=== PATIENT | female | born 1960 | race Caucasian/White ===

== ENCOUNTER 2025-02-01 15:04 | Outpatient (CLI) | payer MEDICARE | END 2025-02-01 15:05 | disposition home or self-care (01) | LOC: CSHRAD 15:04 | PROVIDERS: ATTEND Orthopaedic Surgery | DX: M54.2 Cervicalgia (principal); M54.50 Low back pain, unspecified; M53.3 Sacrococcygeal disorders, not elsewhere classified; M47.812 Spondylosis without myelopathy or radiculopathy, cervical region; M47.816 Spondylosis without myelopathy or radiculopathy, lumbar region; N20.0 Calculus of kidney; I70.90 Unspecified atherosclerosis; M46.1 Sacroiliitis, not elsewhere classified | CPT/HCPCS: 72040; 72100; 72190 ==